=== PATIENT | male | born 1950 ===

== ENCOUNTER → 2019-03-30 | Outpatient (CLI) | payer OTHER ==
[~2019-03-30] MED LIST: ASPI81CH; DILT240 PO; ENOX40I; INSLIS75I; LISI20; MECL25 PO; NEBI5; NITR.4SL; SIMV10; SIMV5; Zofran Odt4 MG SL
== END | disposition home or self-care (01) ==
LOC: PLD 08:13 → LAB SHORT 08:13
DX: L82.1 Other seborrheic keratosis (principal)
CPT/HCPCS: 88305

== ENCOUNTER 2019-05-04 10:30 | Day surgery (SDC) | payer OTHER ==
[2019-05-04 13:43] LABS: Appearance, Synovial Fluid Hazy (Clear); BODY FLUID RBC 0.003 M/mm3 (0-0); Color, Synovial Fluid Pale Yellow (None-P Yel); RBC Count, Synovial Fluid 3000 /mm3 (0-0); WBC Count, Synovial Fluid 525 /mm3 (0-180)
[2019-05-04 13:56] LABS: Lymphs, Synovial Fluid 51 % (0-15); Neutrophils, Synovial Fluid 1 % (0-24)
[2019-05-04 13:57] LABS: Crystals, Synovial Fluid Not Seen (Not Seen)
[2019-05-04 13:58] LABS: Monocytes/Macrophages, Synovia 48 % (0-65)
== END 2019-05-04 23:01 | disposition home or self-care (01) ==
LOC: US 10:30
PROVIDERS: Orthopaedic Surgery
DX: M25.562 Pain in left knee (principal); M76.62 Achilles tendinitis, left leg; Z79.899 Other long term (current) drug therapy; Z88.5 Allergy status to narcotic agent; Z96.652 Presence of left artificial knee joint
CPT/HCPCS: 20610; 77002; 89051